=== PATIENT | male | born 1965 | race Caucasian/White ===

== ENCOUNTER 2017-01-26 11:27 | Day surgery (SDC) | payer OTHER ==
--- NOTE | 2017-01-26 08:55 | PDGENHP ---
History and Physical - Chief Complaint ventral hernia - History of Present Illness 51yo M referred with ventral hernia. Patient states that he has had a "bulge" in the area for 20-30 years. Over the past year has gotten bigger and more symptomatic. Denies any obstructive symptoms. Has attempted to lose weight, unsuccessfully. History Information - Allergies/Home Medication List Allergies/Adverse Reactions: No Known Allergies Allergy (Verified 01/16/17 11:03) Home Medications: Metoprolol Tartrate 01/16/17 [Last Taken Unknown] Prilosec Otc 01/16/17 [Last Taken Unknown] I have personally reviewed and updated: family history, medical history, social history, surgical history Past Medical History: GERD, HTN - Surgical History Additional surgical history: Right knee surgery, no Hx of abdominal surgeries - Family History Positive for: non-pertinent - Social History Smoking Status: Heavy smoker Review of Systems Review of Systems: ROS: 10pt was reviewed & negative except for what was stated in HPI & below Physical Exam Physical Exam: Constitutional: no apparent distress, appears nourished, not in pain Eyes: PERRL, anicteric sclera, EOMI Ears, Nose, Mouth, Throat: moist mucous membranes, hearing normal, ears appear normal, no oral mucosal ulcers Cardiovascular: regular rate and rhythym, no murmur, rub, or gallop, No edema Respiratory: no respiratory distress, no rales or rhonchi, clear to auscultation Gastrointestinal: normoactive bowel sounds, other (obese, soft, small ventral hernia inferior and L to umbilicus ) Genitourinary: no bladder fullness, no bladder tenderness Skin: warm, normal color, no rashes or abrasions, no fluctuance, no induration, No mottled Musculoskeletal: full muscle strength, no muscle tenderness, normal joint ROM, no joint effusions Psychiatric: interacting appropriately, not anxious, not encephalopathic, thought process linear Lymph, Heme, Immunologic: no cervical LAD, no supraclavicular LAD Assessment & Plan Assessment: 51yo M, symptomatic ventral hernia Plan: To OR for repair. Discussed weight loss and smoking cessation, both will help hernia heal and prevent recurrence. All risks, benefits and alternatives discussed
[2017-01-26] MEDS ORDERED: BUPIVACAINE 0.5% 30 ML SDV ONE (11:49)
[2017-01-26] MEDS ORDERED: ceFAZolin 2 GM/SWFI 2 GM/20 ML SYR IVP ONE (11:55)
[2017-01-26] MEDS ORDERED: LR 1,000 ML IV ONE (11:56)
[2017-01-26] MEDS ORDERED: LIDOCAINE 1% 2 ML INJ ID PRN (11:56)
[2017-01-26] MEDS ORDERED: MIDAZOLAM 2 MG/2 ML VIAL IVP ONE (12:43)
--- NOTE | 2017-01-26 12:50 | PDANEPAE ---
ANE History of Present Illness Laparoscopic Ventral hernia repair ANE Past Medical History - Cardiovascular History Hx Hypertension: Yes Hx Arrhythmias: No Hx Chest Pain: No Hx Coronary Artery / Peripheral Vascular Disease: No Hx CHF / Valvular Disease: No Hx Palpitations: No - Pulmonary History Hx COPD: No Hx Asthma/Reactive Airway Disease: No Hx Recent Upper Respiratory Infection: No Hx Oxygen in Use at Home: No Hx Sleep Apnea: No Sleep Apnea Screening Result - Last Documented: Positive - Neurologic History Hx Cerebrovascular Accident: No Hx Seizures: No Hx Dementia: No - Endocrine History Hx Diabetes: No Hypothyroid: No Hyperthyroid: No Obesity: mild - Renal History Hx Renal Disorders: No - Liver History Hx Hepatic Disorders: No - Neurological & Psychiatric Hx Hx Neurological and Psychiatric Disorders: No - Cancer History Hx Cancer: No - GI History GERD: mild Hx Gastrointestinal Disorders: Yes Gastrointestinal History Comment: reflux - Other Health History Other Health History: missing upper tooth - Chronic Pain History Chronic Pain: Yes (knee right) - Surgical History Prior Surgeries: knee scope ANE Review of Systems Review of Systems: - Exercise capacity METS (RN): 4 METS ANE Patient History - Allergies Allergies/Adverse Reactions: No Known Allergies Allergy (Verified 01/16/17 11:03) - Home Medications Home Medications: Metoprolol Tartrate 01/16/17 [Last Taken 01/26/17 07:30] Prilosec Otc 01/16/17 [Last Taken 01/26/17 07:30] - NPO status NPO Since - Liquids (Date): 01/26/17 NPO Since - Liquids (Time): 09:30 NPO Since - Solids (Date): 01/25/17 NPO Since - Solids (Time): 22:00 - Anes Hx Anes Hx: post operative nausea - Smoking Hx Smoking Status: Heavy smoker - Alcohol Use Alcohol Use: Occasionally - Family Anes Hx Family Anes Hx: none Family Hx Anesthesia Complications: none ANE Labs/Vital Signs - Vital Signs Blood Pressure: 148/98 Heart Rate: 77 Respiratory Rate: 16 O2 Sat (%): 97 Height: 187.96 cm Weight: 113.398 kg ANE Physical Exam - Airway Mouth exam: poor dentition - Pulmonary Pulmonary: no respiratory distress, no rales or rhonchi - Cardiovascular Cardiovascular: regular rate and rhythym, no murmur, rub, or gallop
[2017-01-26] MEDS ORDERED: SCOPOLAMINE HYDROBROMIDE 1 MG/3 DAYS PATCH TD SCH (13:00)
[2017-01-26] MEDS ORDERED: PROPOFOL/EMULSION 500 MG/50 ML BOTTLE IV ONE (13:04)
[2017-01-26] MEDS ORDERED: PROPOFOL 200 MG/20 ML VIAL ONE (13:04)
[2017-01-26] MEDS ORDERED: fentaNYL 250 MCG/5 ML INJ ONE (13:04)
[2017-01-26] MEDS ORDERED: ROCURONIUM 50 MG/5 ML VIAL ONE ×2 (13:35→13:37)
[2017-01-26] MEDS ORDERED: LIDOCAINE 2% 5 ML SDV ONE (13:37)
[2017-01-26] MEDS ORDERED: ONDANSETRON 4 MG/2 ML VIAL ONE (13:37)
[2017-01-26] MEDS ORDERED: DEXAMETHASONE 4 MG/ML VIAL ONE ×2 (13:37)
[2017-01-26] MEDS ORDERED: BUPIVACAINE 0.25% 30 ML SDV ONE (14:11)
[2017-01-26] MEDS ORDERED: HYDROmorphONE/DILAUDID 2 MG/ML INJ ONE (14:34)
[2017-01-26] MEDS ORDERED: SUGAMMADEX SODIUM 200 MG/2 ML VIAL IVP ONE (14:50)
--- NOTE | 2017-01-26 15:05 | POSTOPPROG ---
Post Op Note Date of Operation: 01/26/17 Surgeon: Jett Santoyo Clinical Nursing Professor: CHELE Paez Anesthesiologist: Jayson Anesthesia: GET(General Endotracheal) Pre-op Diagnosis: Recurrent ventral hernia Post-op Diagnosis: same Procedure: Robotic assisted ventral hernia with mesh Findings: 2cm recurrent defect, repaired c 9cm Symbotex Inf/Abcess present in the surg proc area at time of surgery?: No EBL: Minimal
[2017-01-26] MEDS ORDERED: PROMETHAZINE HCL 25 MG/ML INJ IVP PRN (15:12)
[2017-01-26] MEDS ORDERED: HYDROmorphONE/DILAUDID 1 MG/ML INJ IVP PRN (15:12)
[2017-01-26] MEDS ORDERED: OXYCODONE/APAP 5/325 TAB PO PRN (15:12)
[2017-01-26] MEDS ORDERED: HYDROCODONE/APAP 5/325 TAB PO PRN (15:12)
[2017-01-26] MEDS ORDERED: NALOXONE HCL 0.4 MG/ML INJ IVP PRN (15:12)
[2017-01-26] MEDS ORDERED: ONDANSETRON 4 MG/2 ML VIAL IVP PRN (15:12)
[2017-01-26] MEDS ORDERED: KETOROLAC 30 MG/1 ML SDV IVP ONE (15:14)
[2017-01-26] MEDS ORDERED: KETOROLAC 30 MG/1 ML SDV ONE (15:20)
[2017-01-26] MEDS ORDERED: fentaNYL 100 MCG/2 ML INJ ONE ×2 (15:21→15:46)
[2017-01-26] MEDS: fentaNYL 100 MCG/2 ML INJ IVP PRN ×4 (15:23→15:55)
[2017-01-26] MEDS ORDERED: OXYCODONE/APAP 5/325 TAB ONE (16:21)
[2017-01-26 16:28] VITALS: RESP 16
[2017-01-26 16:34] VITALS: TEMP 97.3
[2017-01-26 17:28] VITALS: O2SAT 94
[2017-01-26 17:29] VITALS: BP 108/69; PULSE 73
--- NOTE | 2017-01-26 22:07 | GOP ---
[f rep st] OPERATIVE REPORT DATE OF OPERATION: 01/26/2017 SURGEON: Jett Santoyo MD PHYSICAL BIOCHEMIST: Lien Ritchie PA-C PREOPERATIVE DIAGNOSIS: Recurrent ventral hernia. POSTOPERATIVE DIAGNOSIS: Recurrent ventral hernia. PROCEDURE PERFORMED: Robotic-assisted laparoscopic ventral hernia repair with mesh. FINDINGS: A recurrent defect superior and to the left of the umbilicus was identified. It was approximately 2 cm in greatest dimension. The fascia was reapproximated with a running 0 Stratafix suture. An underlay Symbotex 9 cm mesh was appropriately attached underlying. SPECIMENS: None. ESTIMATED BLOOD LOSS: 5 cc. DESCRIPTION OF PROCEDURE: The patient was greeted in the preoperative suite. Once again, risks, benefits, and alternatives were discussed. Consent was signed. He was then brought back to the operative suite, placed on the OR table in supine position. After all anesthesia machines, including SCDs, were on and functioning, a [employer] time-out was performed. After successful induction of general anesthesia, the patient's abdomen was prepped and draped in typical sterile fashion. I entered the abdomen using the Veress needle in the patient's right upper quadrant, through which I insufflated the CO2 and achieved pneumoperitoneum to 15 mmHg. Through this, I inserted, using the Visiport technique, a 5 mm trocar. Once successfully in the abdomen, I placed 2 additional 8 mm trocars, 1 in the mid abdomen in the right furthermost position and 1 just above the right ASIS. I also upsized my right upper quadrant port to an 8 as well. I successfully docked the robot. Once docked, I completely reduced the hernia which appeared to be old fat. I did not appreciate any previous mesh. I identified the fascial defect and cleaned the edges off appropriately. Once successfully cleaned, I reapproximated the fascial edges using a running 0 Stratafix suture noting excellent fascial reapproximation. I then brought my 9 cm Symbotex mesh into the field and successfully attached it in an underlay fashion noting excellent fascial abdominal wall approximation. I did this using a running 2-0 V-Loc suture. After this was done, I inspected the viscera and noted no other suspicious abnormalities. All needles were successfully removed. I then desufflated and removed my ports, undocked the robot, and closed each port site with a running 4-0 Monocryl over which Dermabond was placed. The patient was then extubated in the operative suite and taken to the PACU in satisfactory condition. DRAINS: None. COUNTS: All counts were reported as correct x2. /[id number]/MODL MTDD
[2017-01-27] MEDS ORDERED: PATCH REMOVAL 1 EA PATCH TD ONE (12:48)
[2017-01-29] MEDS ORDERED: PATCH REMOVAL 1 EA PATCH TD SCH (12:47)
== END 2017-01-26 17:08 | disposition home or self-care (01) ==
LOC: FSGY 11:27
PROVIDERS: ATTEND Surgery
PROC: 0WUF4JZ Supplement Abdominal Wall with Synthetic Substitute, Percutaneous Endoscopic Approach (ICD-10-PCS; principal; 2017-01-26 13:00)
PROC: 8E0W4CZ Robotic Assisted Procedure of Trunk Region, Percutaneous Endoscopic Approach (ICD-10-PCS; principal; 2017-01-26 13:00)
DX: K43.2 Incisional hernia without obstruction or gangrene (principal); K21.9 Gastro-esophageal reflux disease without esophagitis; I10 Essential (primary) hypertension; F17.210 Nicotine dependence, cigarettes, uncomplicated
CPT/HCPCS: 49654; S2900; C1781; J0171; J0690; J1100; J1170; J1885; J2250; J2405; J2704; J3010

== ENCOUNTER → 2018-05-19 | Outpatient (CLI) | payer BC | LOC: BMCIMAGING 11:19 | PROVIDERS: ATTEND Family Medicine | DX: S29.9XXA Unspecified injury of thorax, initial encounter (principal) ==